=== PATIENT | female | born 2005 | race African-American/Black ===

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

== ENCOUNTER 2023-02-11 20:10 | Emergency (ER) | payer OTHER, SELFPAY ==
--- NOTE | ~2023-02-11 | XR_ITS ---
EXAMINATION: XR knee RT min 4V DATE: 02/11/2023 21:38 INDICATION: Right knee injury. Fall. TECHNIQUE: 4 views of right knee were obtained. COMPARISON: Right knee radiographs 07/30/2022 FINDINGS: There is widening of lateral compartment of the knee. No fracture. There is a tiny osteophy te of lateral tibial plateau. There is a small knee joint effusion. IMPRESSION: 1. Widening of lateral compartment of the knee suspicious for lateral collateral ligament complex spr ain. 2. Mild osteoarthritis of lateral compartment of the knee. 3. Small right knee joint effusion. Reviewed, dictated and finalized at location E. IMPRESSION: 1. Widening of lateral compartment of the knee suspicious for lateral collatera l ligament complex sprain. 2. Mild osteoarthritis of lateral compartment of the knee. 3. Small right knee joint effusion.
[2023-02-11 20:40] VITALS: BP 155/88; PULSE 84; RESP 18; TEMP 36.4; O2SAT 99
--- NOTE | 2023-02-11 22:47 | ED.GENADULT ---
[facility] - General Adult General Chief complaint: Extremity Injury, Lower Stated complaint: R knee injury Time Seen by Provider: 02/11/23 21:24 Source: patient Mode of arrival: ambulatory Limitations: no limitations History of Present Illness HPI narrative: This is a 17-year-old female who presents to the ED with chief complaint of a right knee injury occurring this evening. She reports she was playing football when she was running and suddenly stopped. She reports she felt a pop in the knee and then went down to the ground. Denies any numbness or weakness. Denies any further site of pain or injury. Related Data Allergies Allergy/AdvReac Type Severity Reaction Status Date / Time shellfish derived Allergy Unknown Verified 02/11/23 21:23 Review of Systems Review of Systems: All systems as dictated in [facility] Past Medical History Medical History No pertinent past medical history Surgical History Surgical History No pertinent past surgical history Social History Social History Smoking status: Never smoker Exam Narrative: GENERAL: Well-appearing, well-nourished, and in no acute distress. HEAD: Normocephalic, atraumatic. EYES: PERRLA and EOMI. ENT: Nares clear, no rhinorrhea or epistaxis. Mucous membranes moist. Oropharynx without tonsillar hypertrophy exudate or other lesions. NECK: Supple. No adenopathy or masses. CHEST: No respiratory distress. Clear to auscultation. No wheezes rales or rhonchi HEART: Regular rate and rhythm. No murmur heard. Normal peripheral pulses. ABDOMEN: Soft, nontender, nondistended, normal active bowel sounds. MSK: Mild right knee tenderness. No deformity or bruising. Neurovascularly intact distally. Soft compartments. Normal range of motion. No edema. SKIN: Warm, dry, no rash. NEURO: Alert and oriented x3. No focal deficits. PSYCH: Normal mood and affect. Course Vital Signs Vital signs: Vital Signs Temperature 97.6 F 02/11/23 20:40 Pulse Rate 84 02/11/23 20:40 Respiratory Rate 18 02/11/23 20:40 Blood Pressure 155/88 H 02/11/23 20:40 Pulse Oximetry 99 02/11/23 20:40 Oxygen Delivery Room Air 02/11/23 20:40 Temperature 97.6 F 02/11/23 20:40 Pulse Rate 83 02/11/23 23:06 Respiratory Rate 16 02/11/23 23:06 Blood Pressure 150/84 H 02/11/23 23:06 Pulse Oximetry 100 02/11/23 23:06 Oxygen Delivery Room Air 02/11/23 20:40 Medical Decision Making MDM Narrative Medical decision making narrative: This is a 17-year-old female who presents to the ED with chief complaint of a right knee injury. Vitals are normal. Exam shows mild knee tenderness with minimal swelling. No deformity. X-ray shows 1. Widening of lateral compartment of the knee suspicious for lateral collateral ligament complex sprain. 2. Mild osteoarthritis of lateral compartment of the knee. 3. Small right knee joint effusion.. Symptoms consistent with knee derangement. Knee immobilizer removed given. Crutches given. Supportive measures for home discussed. Orthopedic referral given. Pt will be discharged in stable condition. Return precautions given and supportive measures discussed. Pt is understanding and agreeable with plan for discharge and follow-up with PCP/ortho Vital Signs Vital Signs: Vital Signs Temperature 97.6 F 02/11/23 20:40 Pulse Rate 84 02/11/23 20:40 Respiratory Rate 18 02/11/23 20:40 Blood Pressure 155/88 H 02/11/23 20:40 Pulse Oximetry 99 02/11/23 20:40 Oxygen Delivery Room Air 02/11/23 20:40 Temperature 97.6 F 02/11/23 20:40 Pulse Rate 83 02/11/23 23:06 Respiratory Rate 16 02/11/23 23:06 Blood Pressure 150/84 H 02/11/23 23:06 Pulse Oximetry 100 02/11/23 23:06 Oxygen Delivery Room Air 02/11/23 20:40 Discha
[2023-02-11 23:06] VITALS: BP 150/84; PULSE 83; RESP 16; O2SAT 100
== END 2023-02-11 23:08 | disposition home or self-care (01) ==
PROVIDERS: Emergency Provider Physician Assistant
DX: S89.91XA Unspecified injury of right lower leg, initial encounter (principal); X50.0XXA Overexertion from strenuous movement or load, initial encounter
CPT/HCPCS: 73564; 99283

== ENCOUNTER 2023-05-30 23:31 | Emergency (ER) | payer OTHER, SELFPAY ==
--- NOTE | ~2023-05-30 | XR_ITS ---
EXAMINATION: XR chest 1V portable INDICATION: Unresponsive TECHNIQUE: Portable AP chest at 0017 hours COMPARISON: None available FINDINGS: The lung volumes are low. There are patchy opacities throughout all lung zones. No pleural effusion or pneumothorax. The cardiomediastinal silhouette is normal. IMPRESSION: 1. Diffuse lung disease which could reflect atelectasis versus pneumonia versus pulmonary edema. Reviewed, dictated and finalized at location F. ING SCHEDULER
--- NOTE | ~2023-05-30 | CT_ITS ---
EXAMINATION: CT brain wo con INDICATION: Altered mental status COMPARISON: None TECHNIQUE: Standard unenhanced head CT. The dose-length product (DLP) was 681.00 mGy-cm. The mA was a djusted according to patient size. Iterative reconstruction technique was employed. FINDINGS: No intracranial hemorrhage, acute infarction, or abnormal mass lesion. The ventricles are n ormal. No abnormal mass effect or midline shift. The payne-white matter differentiation is normal. The basal cisterns are patent. The orbits are normal. The paranasal sinuses, mastoids and calvarium are normal. IMPRESSION: 1. No acute intracranial abnormality. Reviewed, dictated and finalized at location A. RION ANALYST
[2023-05-30 23:32] VITALS: PULSE 77; RESP 27; TEMP 36.6; O2SAT 92
--- NOTE | 2023-05-30 23:37 | ECG_ITS ---
Measurements Intervals [place] Rate: 73 P: 71 AR: 177 QRS: 82 QRSD: 85 T: 55 QT: 379 QTc: 420 Interpretive Statements SINUS RHYTHM NONSPECIFIC T-WAVE ABNORMALITY NO PREVIOUS ECG AVAILABLE FOR COMPARISON Electronically Signed On 05-31-2023 11:38:57 SKATE BOARDER by Brian Fay M.D.
--- NOTE | 2023-05-30 23:47 | ED.AMS ---
HPI - Altered Mental Status General Chief Complaint: Altered Mental Status <Neisha King PA-C - Last Filed: 05/31/23 17:51> Stated Complaint: AMS; N/V <Neisha King PA-C - Last Filed: 05/31/23 17:51> Time Seen by Provider: 05/30/23 23:39 <Neisha King PA-C - Last Filed: 05/31/23 17:51> Source: patient and EMS <Neisha King PA-C - Last Filed: 05/31/23 17:51> Mode of arrival: EMS <Neisha King PA-C - Last Filed: 05/31/23 17:51> Limitations: altered mental status <Neisha King PA-C - Last Filed: 05/31/23 17:51> History of Present Illness HPI narrative: This is a 18 year old female that presents to the ER for altered mental status. EMS was called for lethargy and vomiting. Patient responsive to sternal rub. Her friends deny any drug or alcohol use tonight. <Neisha King PA-C - Last Filed: 05/31/23 17:51> Related Data Allergies/Adverse Reactions: Allergies Allergy/AdvReac Type Severity Reaction Status Date / Time shellfish derived Allergy Unknown Verified 02/11/23 21:23 <Neisha King PA-C - Last Filed: 05/31/23 17:51> Review of Systems Review of Systems: ROS unobtainable: Yes unobtainable due to mental status <Neisha King PA-C - Last Filed: 05/31/23 17:51> [facility] Past Medical History Medical History: Medical History No pertinent past medical history <Neisha King PA-C - Last Filed: 05/31/23 17:51> Surgical History Surgical History: Surgical History No pertinent past surgical history <Neisha King PA-C - Last Filed: 05/31/23 17:51> Social History Social History: Social History (Updated 05/31/23 @ 04:34 by Neisha King PA-C) Smoking status: Never smoker Substance use: current Substance use type: marijuana <Neisha King PA-C - Last Filed: 05/31/23 17:51> Exam Narrative: GENERAL: Well-appearing, obese, and in no acute distress. HEAD: Normocephalic, atraumatic. EYES: PERRLA. Pupils are dilated ENT: Nares clear, no rhinorrhea or epistaxis. Mucous membranes moist. Oropharynx without tonsillar hypertrophy exudate or other lesions. Bilateral TMs pearly payne non-bulging NECK: Supple. No adenopathy or masses. CHEST: Clear to auscultation. No respiratory distress. No wheezes rales or rhonchi HEART: Regular rate and rhythm. No murmur heard. Normal peripheral pulses. ABDOMEN: Soft, nontender, nondistended, normal active bowel sounds. EXTREMITIES: Normal range of motion. No edema. SKIN: Warm, dry, no rash. NEURO: Lethargic, will respond to her name PSYCH: Normal mood and affect <Niesha King PA-C - Last Filed: 05/31/23 17:51> Course Course Emergency Course: Patient is now alert and oriented. Reports she does not know what happened tonight. The last thing she remembered was watching a movie with her friends <Neisha King PA-C - Last Filed: 05/31/23 17:51> Vital Signs Vital signs: Vital Signs Temperature 97.8 F 05/30/23 23:32 Pulse Rate 77 05/30/23 23:32 Respiratory Rate 27 H 05/30/23 23:32 Pulse Oximetry 92 05/30/23 23:32 Oxygen Delivery Room Air 05/30/23 23:32 Temperature 97.8 F 05/30/23 23:32 Pulse Rate 82 05/31/23 08:41 Respiratory Rate 16 05/31/23 08:41 Blood Pressure 116/88 05/31/23 08:41 Pulse Oximetry 99 05/31/23 08:41 Oxygen Delivery Nasal Cannula 05/31/23 00:39 Oxygen Flow Rate 5 05/31/23 00:39 <Neisha King PA-C - Last Filed: 05/31/23 17:51> Vital Signs Temperature 97.8 F 05/30/23 23:32 Pulse Rate 77 05/30/23 23:32 Respiratory Rate 27 H 05/30/23 23:32 Pulse Oximetry 92 05/30/23 23:32 Oxygen Delivery Room Air 05/30/23 23:32 Temperature 97.8 F 05/30/23 23:32 Pulse Rate 82 05/31/23 08:41 Respiratory Rate 16 05/31/23 08:41 Blood Pressure 116/88 05/31
[2023-05-30 23:54] VITALS: PULSE 79
[2023-05-31 00:39] VITALS: O2SAT 100
[2023-05-31 01:23] LABS: Basophils Percent Auto 0.6 % (0.2-1.2); Eosinophils Absolute Auto 0.1 K/mm3 (0-0.3); Hematocrit 44.4 % (37.0-47.0); Hemoglobin 13.9 g/dL (12.0-15.0); Immature Granulocyte Absolute 0.03 K/mm3 (0.00-0.031); Immature Granulocyte Percent A 0.4 % (0-0.5); Lymphocytes Absolute Auto 1.35 K/mm3 (0.9-3.2); Lymphocytes Percent Auto 19.1 % (18.3-44.2); Mean Corpuscular HGB Conc 31.3 g/dl (32-36); Mean Corpuscular Hemoglobin 25.6 pg (26-34); Mean Corpuscular Volume 81.9 fl (80-100); Mean Platelet Volume 9.2 fl (7.4-10.4); Monocytes Absolute Auto 0.5 K/mm3 (0.1-0.6); Monocytes Percent Auto 6.6 % (2.6-8.5); Neutrophils Absolute Auto 5.1 K/mm3 (1.3-6.7); Neutrophils Percent Auto 71.3 % (45.5-73.1); Platelet Count Result 351 k/mm3 (150-375); Red Blood Count 5.42 M/mm3 (4.2-5.4); Red Cell Distribution Width 13.5 % (11.5-14.5); White Blood Count 7.1 K/mm3 (4.5-10.0)
[2023-05-31 01:38] LABS: Prothrombin Time 13.5 Seconds (11.1-14.7)
[2023-05-31 01:39] LABS: Partial Thromboplastin Time 20.2 SECONDS (22.3-36.8)
[2023-05-31] MEDS: SODIUM CHLORIDE 0.9% IV 1,000 ML 999 ML IV CONT (01:40)
[2023-05-31 01:42] LABS: Ethanol < 10 mg/dL (<10)
[2023-05-31 01:50] LABS: Alanine Aminotransferase 25 U/L (6-35); Albumin Level 4.1 g/dL (3.5-5.1); Alkaline Phosphatase 92 U/L (38-126); Anion Gap 10 mmol/L (8-16); Aspartate Amino Transferase 26 U/L (14-36); Bilirubin,Total 0.3 mg/dL (0.2-1.3); Blood Urea Nitrogen 10 mg/dL (7-17); Calcium 9.4 mg/dL (8.4-10.2); Carbon Dioxide 28 mmol/L (22-30); Chloride 104 mmol/L (98-107); Estimated CRCL calculation 144 ml/min; Estimated Glomerular Filt Rate > 60; Glucose 119 mg/dL (65-110); Potassium 4.3 mmol/L (3.4-5.0); Sodium 142 mmol/L (137-145)
[2023-05-31 02:45] VITALS: BP 135/69; PULSE 66; RESP 12; O2SAT 100
[2023-05-31 02:53] LABS: Lipase 67 U/L (23-300)
[2023-05-31 03:04] LABS: Troponin I < 0.012 ng/mL (0.000-0.034)
[2023-05-31 03:46] LABS: Alveolar/Arterial O2 Gradient 12.6 mmHg; Base Excess ABG -1.5 mEq/l (+/-2.0); Carboxyhemoglobin 0.7 % THb (0-2.0); Fractional Inspired Oxygen 21 %; HCO3 ABG 24.4 mEq/l (22.0-26.0); Methemoglobin ABG 0.4 %THb (0-1.5); Modified Allen's Test Pass; Oxygen Content ABG 19.2 %vol (16.0-22.0); Oxygen Saturation ABG 95.5 % (95.0-100.0); Oxyhemoglobin 94.5 % THb (90.0-100.0); PCO2 ABG 45.7 mmHg (35.0-45.0); PO2 ABG 82.4 mmHg (80.0-100.0); PO2 FiO2 Ratio Arterial Blood 3.92 %; Reduced Hemoglobin 4.4 %THb (0-5.0); Site Drawn LEFT RADIAL; Total Hemoglobin 14.4 g/dL (12.0-18.0); pH ABG 7.346 (7.350-7.450)
[2023-05-31 03:47] LABS: Device ROOM AIR
[2023-05-31 03:52] LABS: Appearance Urine Clear (Clear); Bilirubin Urine Negative (Negative); Blood Urine Negative (Negative); Color Urine Dark Yellow (Yellow); Glucose Urine UA Negative (Negative); Ketones Urine Trace mg/dL (Negative); Leukocyte Esterase Ur Negative LEU/UL (Negative); Nitrate Urine Negative (Negative); Protein Urine Negative (Negative); Specific Grav Ur 1.029 (1.001-1.035)
[2023-05-31 04:17] LABS: Barbiturate Screen Urine Negative (Negative); Benzodiazepines Screen Urine Negative (Negative)
[2023-05-31 04:22] LABS: Add Urine Microscopic? NO; Amphetamine Screen Urine Negative (Negative); Cannabinoid Screen Urine Positive (Negative); Cocaine Screen Urine Negative (Negative); Methadone Screen Urine Negative (Negative); Opiate Screen Urine Negative (Negative); Phencyclidine Screen Urine Negative (Negative)
[2023-05-31 04:23] LABS: Acetaminophen < 10 ug/mL (10-30); Salicylate < 1.0 mg/dL (2-20)
[2023-05-31 04:33] VITALS: BP 134/67; PULSE 83; RESP 17; O2SAT 96
[2023-05-31 04:54] LABS: Thyroid Stimulating Hormone Reflex 0.536 uIU/mL (0.465-4.68)
--- NOTE | 2023-05-31 08:00 | PC.NURSE ---
Ambulatory to restroom with steady gait. Alert x3. Does not remember events of last night.
[2023-05-31 08:41] VITALS: BP 116/88; PULSE 82; RESP 16; O2SAT 99
== END 2023-05-31 08:42 | disposition home or self-care (01) ==
PROVIDERS: Physician Assistant; Emergency Provider Emergency Medicine
DX: R40.4 Transient alteration of awareness (principal)
CPT/HCPCS: 36415; 36600; 70450; 71045; 80053; 80307; 81003; 81025; 82375; 82805; 83050; 83690; 84443; 84484; 85025; 85610; 85730; 93005; 96360; 99284; J7030

== ENCOUNTER 2023-06-20 02:00 | Emergency (ER) | payer OTHER, SELFPAY ==
[2023-06-20 02:07] VITALS: BP 136/88; PULSE 76; RESP 15; TEMP 36.3; O2SAT 100
--- NOTE | 2023-06-20 05:42 | PC.NURSE ---
watched patient ambulate without incident to a car outside. No apparent distress.
== END 2023-06-20 07:04 | disposition left against medical advice (07) ==
DX: R51.9 Headache, unspecified (principal)
CPT/HCPCS: 99199

== ENCOUNTER 2023-07-19 04:38 | Emergency (ER) | payer MEDICAID, SELFPAY ==
[2023-07-19] VITALS (7 sets, daily range): BP systolic 157; BP diastolic 71–85; PULSE 90–111; RESP 16–32; TEMP 36.6; O2SAT 98–100
--- NOTE | 2023-07-19 05:02 | ECG_ITS ---
Measurements Intervals [place] Rate: 90 P: 15 IA: 157 QRS: 71 QRSD: 82 T: 12 QT: 342 QTc: 419 Interpretive Statements SINUS RHYTHM MINIMAL Q WAVES- INFERIOR LEADS BORDERLINE ECG COMPARED TO ECG 05/30/2023 23:46:41 NO SIGNIFICANT CHANGES Electronically Signed On 07-19-2023 12:20:13 CDT by Gerson Torrez D.O.
[2023-07-19] MEDS: SODIUM CHLORIDE 0.9% IV 1,000 ML 999 ML IV CONT (05:06)
[2023-07-19 05:32] LABS: Basophils Absolute Auto 0.1 K/mm3 (0.0-0.1); Basophils Percent Auto 0.8 % (0.2-1.2); Eosinophils Absolute Auto 0.2 K/mm3 (0-0.3); Eosinophils Percent Auto 2.8 % (0-4.4); Hematocrit 39.3 % (37.0-47.0); Hemoglobin 12.4 g/dL (12.0-15.0); Immature Granulocyte Absolute 0.03 K/mm3 (0.00-0.031); Immature Granulocyte Percent A 0.4 % (0-0.5); Lymphocytes Absolute Auto 2.16 K/mm3 (0.9-3.2); Lymphocytes Percent Auto 28.6 % (18.3-44.2); Mean Corpuscular HGB Conc 31.6 g/dl (32-36); Mean Corpuscular Hemoglobin 25.6 pg (26-34); Mean Corpuscular Volume 81.2 fl (80-100); Mean Platelet Volume 9.5 fl (7.4-10.4); Monocytes Absolute Auto 0.8 K/mm3 (0.1-0.6); Monocytes Percent Auto 10.7 % (2.6-8.5); Neutrophils Absolute Auto 4.3 K/mm3 (1.3-6.7); Neutrophils Percent Auto 56.7 % (45.5-73.1); Platelet Count Result 359 k/mm3 (150-375); Red Blood Count 4.84 M/mm3 (4.2-5.4); Red Cell Distribution Width 13.7 % (11.5-14.5); White Blood Count 7.6 K/mm3 (4.5-10.0)
[2023-07-19 05:45] LABS: Alanine Aminotransferase 21 U/L (6-35); Albumin Level 3.9 g/dL (3.5-5.1); Alkaline Phosphatase 80 U/L (38-126); Anion Gap 5 mmol/L (8-16); Aspartate Amino Transferase 25 U/L (14-36); Bilirubin,Total 0.3 mg/dL (0.2-1.3); Blood Urea Nitrogen 11 mg/dL (7-17); Calcium 8.7 mg/dL (8.4-10.2); Carbon Dioxide 27 mmol/L (22-30); Chloride 108 mmol/L (98-107); Estimated CRCL calculation 160 ml/min; Estimated Glomerular Filt Rate > 60; Glucose 98 mg/dL (65-110); Potassium 3.2 mmol/L (3.4-5.0); Sodium 140 mmol/L (137-145)
--- NOTE | 2023-07-19 05:45 | PC.NURSE ---
Patient sitting up in bed awake at this time. States that she normally takes lamotrigine 50 mg at 2100. States she was instructed by her PCP to take hydroxizine when she has panic attacks. Patient states that tonight is the second time she has taken hydroxizine and has had similiar reactions of hyperventilation and the opposite effect of what it is intended for. This RN instructed patient to follow up with the provider that prescribed the medication and let them know about the reactions she has been having. Patient verbalizes understanding.
[2023-07-19 05:47] LABS: Bacteria Urine None Seen /hpf; Non Pathogenic Casts 0-2; RBC Urine 0-2 /hpf (0-2); Squamous Epithelial Cell Urine None Seen /hpf (Few)
[2023-07-19 05:49] LABS: Amphetamine Screen Urine Negative (Negative); Barbiturate Screen Urine Negative (Negative); Benzodiazepines Screen Urine Negative (Negative); Cannabinoid Screen Urine Positive (Negative); Cocaine Screen Urine Negative (Negative); Methadone Screen Urine Negative (Negative); Opiate Screen Urine Negative (Negative); Phencyclidine Screen Urine Negative (Negative)
[2023-07-19 05:53] LABS: Appearance Urine Clear (Clear); Blood Urine Trace-intact (Negative); Color Urine Yellow (Yellow); Glucose Urine UA Negative (Negative); Ketones Urine Negative (Negative); Protein Urine Negative (Negative)
[2023-07-19 05:54] LABS: Bilirubin Urine Negative (Negative); Leukocyte Esterase Ur 1+ LEU/UL (Negative); Nitrate Urine Negative (Negative); Urobilinogen Urine 0.2 mg/dL (<2.0)
[2023-07-19 05:55] LABS: Add Urine Microscopic? YES
[2023-07-19 05:57] LABS: Troponin I < 0.012 ng/mL (0.000-0.034)
--- NOTE | 2023-07-19 05:58 | PC.NURSE ---
Patient stated to registration that she would like to leave and receive no further treatment. Dr. Post made aware.
--- NOTE | 2023-07-19 07:28 | ED.GENADULT ---
HPI - General Adult General Chief complaint: Chest Pain Stated complaint: anxiety Time Seen by Provider: 07/19/23 04:59 History of Present Illness HPI narrative: This 18-year-old female, with history of anxiety, brought in by EMS for had for chest pain. EMS reports they were called to the patient's home by PD. They report the patient appeared very anxious and was complaining of chest pain on arrival, the patient appeared tachypneic but did not answer many questions. The patient answers yes and no questions. She answers yes to chest pain as well as shortness of breath but answers no to all other questions. Related Data Allergies Allergy/AdvReac Type Severity Reaction Status Date / Time shellfish derived Allergy Unknown Verified 06/20/23 02:14 Review of Systems Review of Systems: CONSTITUTIONAL: Denies fever, chills, or sweats. CARDIOVASCULAR: Chest pain Denies palpitations, or edema. RESPIRATORY: Denies cough or dyspnea. GASTROINTESTINAL: Denies abdominal pain, nausea, vomiting, or diarrhea. GENITOURINARY: LMP unknown. Denies dysuria or hematuria. SKIN: Denies rash or itching. MUSCULOSKELETAL: Denies back pain, joint pain, or myalgia. NEUROLOGIC: Denies headache, numbness, dizziness, or weakness. PSYCHIATRIC: Denies anxiety or depression. PMFSH Past Medical History Medical History Anxiety Surgical History Surgical History No pertinent past surgical history Social History Social History Smoking status: Never smoker Substance use: current Substance use type: marijuana Exam Narrative: GENERAL: Well-developed, well-nourished, sluggish responsive HEAD: Normocephalic, atraumatic. EYES: PERRLA and EOMI. ENT: Nares clear, no rhinorrhea or epistaxis. Mucous membranes moist. Oropharynx without tonsillar hypertrophy exudate or other lesions. CHEST: Tachypneic. Clear to auscultation. No respiratory distress. No wheezes rales or rhonchi HEART: Regular rate and rhythm. No murmur heard. Normal peripheral pulses. ABDOMEN: Soft, nontender, nondistended, normal active bowel sounds. EXTREMITIES: Normal range of motion. No edema. SKIN: Warm, dry, no rash. NEURO: Alert and oriented x3. Slow to respond. No focal deficit. Moving all 4 limbs spontaneously PSYCH: Normal mood and affect. Course Course Emergency Course: 05:45 - The patient is now awake and alert. She states her symptoms related to her anxiety. She took Atarax which causes her to hyperventilate. She has no other complaints at this time. CBC unremarkable. Chemistries demonstrate mild hypokalemia with potassium at 3.2 but otherwise unremarkable. UA demonstrates trace blood leukocyte esterase but is otherwise not concerning for urinary tract infection. Urine drug screen positive for cannabinoids. 05:58 - The patient now wishes to the be discharged. A troponin is not yet available. I have a low suspicion for ACS, however I advised the patient without otherwise the results I could not safely rule out ACS. I discussed the risks of discharge the against medical advice, including , disability and heart attack. The patient was understanding and wishes to go. Vital Signs Vital signs: Vital Signs Temperature 97.8 F 07/19/23 04:47 Pulse Rate 90 07/19/23 04:47 Respiratory Rate 32 H 07/19/23 04:47 Blood Pressure 157/71 H 07/19/23 04:47 Pulse Oximetry 99 07/19/23 04:47 Oxygen Delivery Room Air 07/19/23 04:47 Temperature 97.8 F 07/19/23 04:47 Pulse Rate 105 H 07/19/23 05:47 Respiratory Rate 21 H 07/19/23 05:47 Blood Pressure 157/85 H 07/19/23 05:47 Pulse Oximetry 98 07/19/23 05:47 Oxygen Delivery Room Air 07/19/23 04:52 Medical Decision Making [facility] Narrative Medical decision making narrative: Plan: Labs, imaging, EKG, troponin, reassess Differen
== END 2023-07-19 06:07 | disposition left against medical advice (07) ==
PROVIDERS: Emergency Provider Preventive Medicine Aerospace Medicine
DX: R07.9 Chest pain, unspecified (principal); F41.9 Anxiety disorder, unspecified; R94.31 Abnormal electrocardiogram [ECG] [EKG]
CPT/HCPCS: 36415; 80053; 80307; 81001; 81025; 84484; 85025; 87086; 93005; 96360; 99284; J7030

== ENCOUNTER 2023-11-27 06:44 | Emergency (ER) | payer OTHER, SELFPAY ==
[2023-11-27 06:45] VITALS: BP 136/76; PULSE 118; RESP 16; TEMP 36.6; O2SAT 99
--- NOTE | 2023-11-27 07:35 | ECG_ITS ---
Test Date: 2023-11-27 08:47:06 Measurements Intervals [place] Rate: 104 P: 63 MN: 144 QRS: 57 QRSD: 82 T: 21 QT: 323 QTc: 427 Interpretive Statements SINUS TACHYCARDIA ABNORMAL RHYTHM ECG No previous ECG available for comparison Electronically Signed On 11-27-2023 11:34:01 CDT by Rahat Cortes M.D.
[2023-11-27 08:00] LABS: Add Urine Microscopic? NO; Appearance Urine Clear (Clear); Basophils Absolute Auto 0.1 K/mm3 (0.0-0.1); Basophils Percent Auto 0.8 % (0.2-1.2); Bilirubin Urine Negative (Negative); Blood Urine Negative (Negative); Color Urine Yellow (Yellow); Eosinophils Absolute Auto 0.1 K/mm3 (0-0.3); Eosinophils Percent Auto 1.9 % (0-4.4); Glucose Urine UA Negative (Negative); Hemoglobin 12.7 g/dL (12.0-15.0); Immature Granulocyte Absolute 0.02 K/mm3 (0.00-0.031); Immature Granulocyte Percent A 0.3 % (0-0.5); Ketones Urine Negative (Negative); Leukocyte Esterase Ur Negative LEU/UL (Negative); Lymphocytes Absolute Auto 1.56 K/mm3 (0.9-3.2); Lymphocytes Percent Auto 26.4 % (18.3-44.2); Mean Corpuscular HGB Conc 31.8 g/dl (32-36); Mean Corpuscular Hemoglobin 25.7 pg (26-34); Mean Corpuscular Volume 80.8 fl (80-100); Mean Platelet Volume 9.6 fl (7.4-10.4); Monocytes Absolute Auto 0.5 K/mm3 (0.1-0.6); Monocytes Percent Auto 9.1 % (2.6-8.5); Neutrophils Absolute Auto 3.6 K/mm3 (1.3-6.7); Neutrophils Percent Auto 61.5 % (45.5-73.1); Nitrate Urine Negative (Negative); Platelet Count Result 382 k/mm3 (150-375); Protein Urine Negative (Negative); Red Blood Count 4.95 M/mm3 (4.2-5.4); Red Cell Distribution Width 13.4 % (11.5-14.5); Specific Grav Ur 1.024 (1.001-1.035); White Blood Count 5.9 K/mm3 (4.5-10.0); pH Urine 7.5 (5.0-9.0)
--- NOTE | 2023-11-27 08:00 | PC.NURSE ---
PT DECLINES HAVING ORTHOS COMPLETED
[2023-11-27 08:10] LABS: Alanine Aminotransferase 15 U/L (6-35); Alkaline Phosphatase 77 U/L (38-126); Anion Gap 9 mmol/L (4-12); Aspartate Amino Transferase 18 U/L (14-36); Bilirubin,Total 0.3 mg/dL (0.2-1.3); Blood Urea Nitrogen 8 mg/dL (7-17); Calcium 8.6 mg/dL (8.4-10.2); Carbon Dioxide 24 mmol/L (22-30); Chloride 105 mmol/L (98-107); Estimated CRCL calculation 181 ml/min; Estimated Glomerular Filt Rate > 60; Glucose 114 mg/dL (65-110); Potassium 3.8 mmol/L (3.4-5.0); Sodium 138 mmol/L (137-145)
[2023-11-27 08:11] LABS: Ethanol < 10 mg/dL (<10)
[2023-11-27 08:28] LABS: Amphetamine Screen Urine Positive (Negative); Barbiturate Screen Urine Negative (Negative); Benzodiazepines Screen Urine Negative (Negative); Cannabinoid Screen Urine Positive (Negative); Cocaine Screen Urine Negative (Negative); Methadone Screen Urine Negative (Negative); Opiate Screen Urine Negative (Negative); Phencyclidine Screen Urine Negative (Negative)
[2023-11-27 09:30] VITALS: BP 129/74; PULSE 100; RESP 16; O2SAT 100
[2023-11-27 10:36] LABS: Pregnancy On Board Control Positive; Urine Pregnancy Test Negative
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
[2023-11-27] MEDS: metroNIDAZOLE 500 MG TABLET PO (12:01)
[2023-11-27] MEDS: DOXYCYCLINE HYCLATE 100 MG TABLET PO (12:01)
[2023-11-27] MEDS: cefTRIAXone 1 GM VIAL 0.5 GM IM (12:01)
[2023-11-27] MEDS: LIDOCAINE HCL 1% LOCAL INJ 10 ML VIAL (12:02)
[2023-11-27 12:25] VITALS: BP 130/70; PULSE 98; RESP 16; TEMP 36.8; O2SAT 99
== END 2023-11-27 12:25 | disposition home or self-care (01) ==
PROVIDERS: Emergency Provider Emergency Medicine
DX: T74.21XA Adult sexual abuse, confirmed, initial encounter (principal); T43.654A Poisoning by methamphetamines, undetermined, initial encounter; R82.5 Elevated urine levels of drugs, medicaments and biological substances; E66.01 Morbid (severe) obesity due to excess calories; Z68.44 Body mass index [BMI] 60.0-69.9, adult; R00.0 Tachycardia, unspecified; Y07.54 Acquaintance or friend, perpetrator of maltreatment and neglect
CPT/HCPCS: 36415; 80053; 80307; 80346; 81003; 81025; 85025; 93005; 96372; 99285; A9270; G0480; J0696

== ENCOUNTER 2023-12-28 12:52 | Emergency (ER) | payer OTHER, SELFPAY ==
[2023-12-28 12:58] VITALS: BP 141/90; PULSE 95; RESP 17; TEMP 36.6; O2SAT 100
[2023-12-28 13:28] LABS: BEDSIDEPREGUCG Negative
[2023-12-28 13:51] LABS: Bacteria Urine 1+ /hpf; Non Pathogenic Casts 0-2; RBC Urine 21-50 /hpf (0-2); Squamous Epithelial Cell Urine Occasional /hpf (Few); WBC Urine >100 /hpf (0-3)
[2023-12-28 13:59] LABS: Appearance Urine Sl Cloudy (Clear); Color Urine Yellow (Yellow); Specific Grav Ur 1.025 (1.001-1.035); pH Urine 6.5 (5.0-9.0)
[2023-12-28 14:00] LABS: Add Urine Microscopic? YES; Bilirubin Urine 1+ (Negative); Blood Urine 2+ (Negative); Glucose Urine UA Negative (Negative); Ketones Urine Trace mg/dL (Negative); Leukocyte Esterase Ur 1+ LEU/UL (Negative); Nitrate Urine Negative (Negative); Protein Urine 2+ mg/dL (Negative)
--- NOTE | 2023-12-28 14:27 | ED.FEMALEGU ---
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 Patient states that she was seen at our urgent care a few days ago and was placed on Macrobid for urinary tract infection and states that she was tested for STDs including gonorrhea, chlamydia, Trichomonas, HSV and HIV and all testing came back negative. Patient is that she continues to have pain and is now having a whitish /pinkish vaginal discharge. She denies any additional symptoms including abdominal pain, fevers, chills, nausea or vomiting. No additional symptoms or concerns at this time. Related Data Allergies Allergy/AdvReac Type Severity Reaction Status Date / Time shellfish derived Allergy Unknown Verified 11/27/23 07:03 Review of Systems Review of Systems: All systems are reviewed and are negative unless stated otherwise in the HPI. [facility] Past Medical History Medical History Anxiety Surgical History Surgical History No pertinent past surgical history Social History Social History Smoking status: Never smoker Substance use: current Substance use type: marijuana Exam Narrative: General: Alert, awake, afebrile, in no acute distress. HEENT: PERRL, no rhinorrhea, no post nasal drip, oropharynx clear. Cardiovascular: Regular rate and rhythm, no murmurs, rubs or gallops, no peripheral edema. Respiratory: Clear to auscultation bilaterally, no tachypnea, no wheezing, no rhonchi, no rubs, no respiratory distress. Abdomen: Soft, nontender, nondistended, no rebound, no guarding, no peritoneal signs. Pelvic: Exam performed with the presence of female nurse taper and floater revealing multiple genital ulcerations, patient did not tolerate speculum exam, whitish/blood-tinged discharge noted. Musculoskeletal: No joint swelling or deformity, normal muscle tone. Skin: No rashes or petechia, no signs of infection. Neurological: Alert and oriented to person, place, and time. Follows all commands. No focal deficits, speech is clear and fluent. Course Vital Signs Vital signs: Vital Signs Temperature 97.8 F 12/28/23 12:58 Pulse Rate 95 12/28/23 12:58 Respiratory Rate 17 12/28/23 12:58 Blood Pressure 141/90 H 12/28/23 12:58 Pulse Oximetry 100 12/28/23 12:58 Temperature 97.8 F 12/28/23 12:58 Pulse Rate 95 12/28/23 12:58 Respiratory Rate 17 12/28/23 12:58 Blood Pressure 141/90 H 12/28/23 12:58 Pulse Oximetry 100 12/28/23 12:58 MDM - Female Genitourinary MDM Narrative Medical decision making narrative: The patient was evaluated by myself in the emergency department. History is obtained from patient who is an independent historian and physical exam was performed. External medical records were reviewed at this time. Urinalysis obtained revealed 1+ bacteria greater than 100 was doubly white blood cells, 21-50 rbc's, 1+ leuk esterases and 2+ blood. Patient was informed that I will be switching her antibiotic to cephalexin and her 1st dose was administered in the emergency department 500 mg oral. Patient was also informed that I will be providing her with a script for Diflucan to use after she finishes her antibiotics to prevent yeast infection. I did perform a pelvic exam with the presence of female nurse taper and floater revealing genital lesions that are painful. I did inform the patient that these resemble a sexually transmitted disease despite her negative STD testing 2 days ago. I did recommend repeat STD testing and provided her with the health department phone number and address to obtain these STD testing and patient i
[2023-12-28] MEDS: CEPHALEXIN 500 MG CAPSULE PO (14:39)
== END 2023-12-28 15:02 | disposition home or self-care (01) ==
PROVIDERS: Student in an Organized Health Care Education/Training Program; Emergency Provider Emergency Medicine
DX: N39.0 Urinary tract infection, site not specified (principal); N94.9 Unspecified condition associated with female genital organs and menstrual cycle
CPT/HCPCS: 81001; 81025; 87086; 99283; A9270

== ENCOUNTER 2023-12-28 18:10 | Emergency (ER) | payer OTHER, SELFPAY ==
[2023-12-28 18:16] VITALS: BP 171/99; PULSE 117; RESP 18; TEMP 36.3; O2SAT 100
[2023-12-28 20:41] VITALS: BP 165/85; PULSE 120; RESP 19; TEMP 36.6; O2SAT 98
--- NOTE | 2023-12-28 21:04 | ED.GENADULT ---
HPI - General Adult General Chief complaint: Unspecified <Nurys Abdul MD - Last Filed: 12/28/23 22:38> Stated complaint: increased pelvic pain <Nurys Abdul MD - Last Filed: 12/28/23 22:38> Time Seen by Provider: 12/28/23 18:22 <Nurys Abdul MD - Last Filed: 12/28/23 22:38> History of Present Illness HPI narrative: Patient is a 18-year-old female who presents to the emergency department this evening complaining of vaginal pain. Patient was seen at our facility a few hours ago for similar symptoms and at that time her urine revealed UTI. Patient was diagnosed with a UTI when her symptoms started approximately 3 days ago at an urgent care and at that time STD testing was performed according to patient, HIV, HSV, Trichomonas, gonorrhea and chlamydia all returned back negative. Patient was started on Macrobid with no improvement of her symptoms. On my assessment during her previous visit patient did have multiple vaginal lesions within her mucosal area, no lesions over her external genitalia. She was informed of this and was provided with information regarding the health department for repeat /additional STD testing and patient was agreeable. Patient states that she took some azo [id number] which states that it did help with her symptoms but she is back because she is continuing to have vaginal pain. Patient states that she wanted to do Sitz bath as recommended but she lives in the dorms and the water in a dorm is yellow and she did not feel as though that is cemetery/clean for her. <Nurys Abdul MD - Last Filed: 12/28/23 22:38> Related Data Allergies/adverse reactions: Allergies Allergy/AdvReac Type Severity Reaction Status Date / Time shellfish derived Allergy Unknown Verified 11/27/23 07:03 <Nurys Abdul MD - Last Filed: 12/28/23 22:38> Review of Systems Review of Systems: All systems are reviewed and are negative unless stated otherwise in the HPI. <uNrys Abdul MD - Last Filed: 12/28/23 22:38> PMFSH Past Medical History Medical History: Medical History Anxiety <Nurys Abdul MD - Last Filed: 12/28/23 22:38> Surgical History Surgical History: Surgical History No pertinent past surgical history <Nurys Abdul MD - Last Filed: 12/28/23 22:38> Social History Social History: Social History Smoking status: Never smoker Substance use: current Substance use type: marijuana <Nurys Abdul MD - Last Filed: 12/28/23 22:38> Exam Narrative: General: Alert, awake, afebrile, in no acute distress. HEENT: PERRL, no rhinorrhea, no post nasal drip, oropharynx clear. Cardiovascular: Regular rate and rhythm, no murmurs, rubs or gallops, no peripheral edema. Respiratory: Clear to auscultation bilaterally, no tachypnea, no wheezing, no rhonchi, no rubs, no respiratory distress. Abdomen: Soft, nontender, nondistended, no rebound, no guarding, no peritoneal signs. Pelvic: Exam performed with the presence of female nurse payroll human resources assistant revealing white vaginal discharge, mucosal ulcerative lesions, no lesions noted on her external genitalia. Musculoskeletal: No joint swelling or deformity, normal muscle tone. Skin: No rashes or petechia, no signs of infection. Neurological: Alert and oriented to person, place, and time. Follows all commands. No focal deficits, speech is clear and fluent. <Nurys Abdul MD - Last Filed: 12/28/23 22:38> Course Course Emergency Course: I informed patient of negative Chlamydia, Gonorrhea and Trichomonas results and patient was discharged as planned with gynecology follow up <Neisha King PA-C - Last Filed: 12/28/23 23:17> Vital Signs Vital signs: Vital Signs Temperature 97.3 F L 12/28/23 18:16 Pulse Rate
[2023-12-28] MEDS: FLUCONAZOLE 150 MG TABLET PO (22:20)
[2023-12-28 22:38] LABS: Trichomonas Vag PCR NOT DETECTED (NOT DETECTE)
[2023-12-28 23:04] LABS: Chlamydia trachomatis NOT DETECTED (NOT DETECTE); Neisseria gonorrhoeae PCR NOT DETECTED (NOT DETECTE)
[2023-12-28 23:31] VITALS: BP 132/76; PULSE 107; RESP 14; O2SAT 100
[2024-01-01 04:08] LABS: Source ENDOCERVICAL
== END 2023-12-28 23:32 | disposition home or self-care (01) ==
PROVIDERS: Emergency Provider Emergency Medicine
DX: N94.9 Unspecified condition associated with female genital organs and menstrual cycle (principal); Z11.3 Encounter for screening for infections with a predominantly sexual mode of transmission
CPT/HCPCS: 81001; 81025; 87070; 87077; 87086; 87255; 87491; 87591; 87661; 99284; A9270